=== PATIENT | male | born 1960 | race African-American/Black ===

== ENCOUNTER 2018-07-22 20:10 | Emergency (ER) | payer MEDICAID ==
[~2018-07-22] VITALS: Ht 170.2 cm; Wt 72.6 kg
[2018-07-22 21:00] VITALS: BP 144/78
[2018-07-22] MEDS ORDERED: Sertraline 50mg tab ORAL ONE (21:15)
[2018-07-22] MEDS ORDERED: Augmentin 875mg Tab ORAL ONE (23:15)
[2018-07-23] MEDS ORDERED: SERTRALINE HCL50 MG ORAL (00:52)
[2018-07-23] MEDS ORDERED: CLINDAMYCIN HC300 MG ORAL (00:52)
--- NOTE | 2018-07-23 00:52 | Emergency Room Report ---
History of Present Illness General Chief Complaint: Behavioral Complaint Source: Patient Present Illness HPI This a 57-year-old homeless male with history of diabetes. He presents with chief complaint of feeling depressed. He said his and November and since then his been very depressed. Occasional suicidal feeling. He was at a psychiatric facility 2 months ago and placed on Abilify. He said that it upset his stomach said he stopped it. He has an appointment within 2 weeks for reevaluation at a psychiatric clinic. He said he felt depressed because of the holiday. Said that he felt suicidal but has no particular plan. No alcohol drugs. He said he doesn't want to hurt himself but occasionally think about it. Denies any nausea vomiting. He also complaining of facial redness and swelling. His been ongoing for less than a week. He has his problem before with cellulitis. Denies any drainage. Denies any fever or chills. Allergies: Coded Allergies: No Known Allergies (Unverified , 07/22/18) Patient History Past Medical History: see triage record, old chart reviewed, DM Past Surgical History: other Pertinent Family History: none Social History: Denies: smoking Immunizations: other Reviewed Nursing Documentation: PMH: Agreed; PSxH: Agreed Nursing Documentation-PMH Hx Diabetes: Yes - PRE DIABETES Review of Systems Eye: Denies: eye pain, blurred vision ENT: Denies: ear pain, nose congestion, throat swelling Respiratory: Denies: cough, shortness of breath Cardiovascular: Denies: chest pain, palpitations Gastrointestinal: Denies: abdominal pain, diarrhea, nausea, vomiting Musculoskeletal: Denies: back pain, joint pain Skin: Denies: rash Psychiatric: Reports: depressed feelings, emotional problems Neurological: Denies: headache, numbness Endocrine: Denies: increased thirst, increased urine Hematologic/Lymphatic: Denies: easy bruising All Other Systems: negative except mentioned in HPI Physical Exam Vital Signs Date Time Temp Pulse Resp B/P (MAP) Pulse Ox O2 Delivery O2 Flow Rate FiO2 07/22/18 20:45 98.4 71 15 144/78 99 Room Air vitals unremarkable Sp02 EP Interpretation: reviewed, normal General Appearance: well appearing, no apparent distress, alert Head: normocephalic, atraumatic Eyes: bilateral eye PERRL, bilateral eye EOMI ENT: hearing grossly normal, normal pharynx, other - Face with erythema over the haro area. No drainage. Neck: full range of motion, supple, no meningismus Respiratory: chest non-tender, lungs clear, normal breath sounds Cardiovascular #1: regular rate, rhythm, no murmur Gastrointestinal: normal bowel sounds, non tender, no mass, no organomegaly, no bruit, non-distended Musculoskeletal: back normal, gait/station normal, normal range of motion Neurologic: alert, oriented x3 Psychiatric: depressed affect Skin: warm/dry Medical Decision Making Diagnostic Impression: Primary Impression: Prolonged grief reaction Additional Impression: Facial cellulitis ER Course Patient presents with a prolonged grief reaction. He also has depression. Usually occasional state that he felt suicidal but has no particular plan. He said he doesn't want to hurt himself. He has no drugs or alcohol abuse. Said he wanted to try new medication. He has no reaction to Zoloft that I gave him here. He was to follow-up with a psychiatric clinic. We'll discharge home in the morning with antidepressant and antibiotics for cellulitis. This patient is a chronic risk of self injury due to poor impulse control, limited coping skills, and judgment intermittently impaired by intoxication. I believe that the available clinical evidence to suggest that these characteristics derived primarily from personality disorder and are likely very stable over time. Hospitalization would likely attenuate risk of self-harm only during correction period, without lasting risk reduction. Serious self-harm , while possible, would likely be inadvertent, and because of impulsivity, and foreseeable. For these reasons, I do not believe hospitalization would provide meaningful reduction in risk of self-harm. Last Vital Signs Date Time Temp Pulse Resp B/P (MAP) Pulse Ox O2 Delivery O2 Flow Rate FiO2 07/22/18 21:00 71 15 Room Air 07/22/18 21:00 98.4 144/78 99 Status: improved Disposition: HOME, SELF-CARE Condition: Stable Scripts Clindamycin Hcl (CLINDAMYCIN HCL) 300 Mg Capsule 300 MG ORAL THREE TIMES A DAY, #21 CAP Prov: Randolph Samayoa MD 07/23/18 Sertraline Hcl* (ZOLOFT*) 50 Mg Tablet 50 MG ORAL DAILY, #30 TAB Prov: Randolph Samayoa MD 07/23/18 Referrals: [facility]ERR[facility] (PCP) Additional Instructions: Follow-up with mental health clinic in one to 2 weeks. Keep the appointment. Return if symptom worsen. Randolph Samayoa MD Jul 23, 2018 00:52
[2018-07-23 05:05] VITALS: BP 144/78
== END 2018-07-23 05:05 | disposition home or self-care (01) ==
LOC: EMR 21:30
DX: F43.29 Adjustment disorder with other symptoms (principal); L03.211 Cellulitis of face; R45.851 Suicidal ideations; R73.03 Prediabetes; F32.9 Major depressive disorder, single episode, unspecified
CPT/HCPCS: 99283